=== PATIENT | female | born 1945 | race Caucasian/White ===

== ENCOUNTER 2018-03-07 00:51 | Inpatient (IN) | payer OTHER, MEDICARE ==
[~2018-03-07] VITALS: Ht 160 cm; Wt 81.4 kg
[~2018-03-07 00:51] MED LIST: CYCLOBENZAPRINE10 M1 PO; FLEXERIL PO; GABAPENTIN600 M1 PO; PLAQUENIL200 M1 PO; TYLENOL EXTRA500 M2 PO; ZYRTEC10 M3 PO
--- NOTE | 2018-03-07 10:24 | Operative Report ---
Operative/Inv Procedure Report Surgery Date: 03/07/18 Name of Procedure: Right total knee arthroplasty Pre-Operative Diagnosis: Right knee primary osteoarthritis Post-Operative Diagnosis: Same Estimated Blood Loss: scant Surgeon/Director Marketing Analytics: Harjinder MARTINEZ,Abiel Billy Anesthesia: block Implants: [place] triathlon total knee system-size 4 femur, size 4 tibia, 9 mm cruciate retaining polyethylene, 29 patella Drains: None Specimens: Femoral, tibial, patellar bone and meniscal tissues Microbiology: Urine Tourniquet: 49 minutes Complications: None Condition: Stable Operative Indication: Patient is a 72-year-old woman with gradually worsening right knee symptoms. She was diagnosed with osteoarthritis several years ago but symptoms gradually worsened to the point where it interferes with severely with normal activities of daily living. Conservative measures provided only short-term relief. Patient wished to proceed with total knee arthroplasty after risks benefits and expectations of surgical and nonsurgical options were discussed which included but were not limited to persistent knee pain, need for subsequent surgery, infection, DVT, injury to blood vessel or nerve, anesthesia risks Operative/Procedure Note Note: Patient was brought to the operating room and transferred to the operating table. Once under anesthesia the right lower extremity was prepped and draped in standard fashion. Preoperative IV antibiotics were given prophylactically. The leg was elevated exsanguinated and tourniquet was inflated to 300 millimeters of pressure. Standard anterior incision was made. Medial parapatellar approach was used to enter the knee joint with a minimal extension to the quadricep tendon. End-stage osteoarthritic changes in the medial compartment moderate degenerative changes of the lateral compartment and patellofemoral compartment. Osteophytes were excised. Remnants of the medial lateral meniscus were excised. Remnants of the ACL was excised. Retractors were placed. I used the drill to enter the intramedullary canal for the intramedullary guide for the distal femoral cut. The cutting block was pinned in place for 6 valgus cut. The appropriate thickness was removed. The femur was then sized to a size 4. Size 4 cuts were made while protecting the soft tissues. I was satisfied with the preparation of the femur. I turned my attention to the tibia. The external tibial alignment guide was used. The cutting block was pinned in place for a neutral cut from medial to lateral and reproducing patient's posterior slope based on preoperative templating and intraoperative measurements. The cut was made. The tibia was then sized to a size 4. I did a trial reduction with a size 4 tibia size 4 femur and a 9 mm insert. I was satisfied with the stability medial to lateral and full extension was obtained. No mid flexion instability. Full flexion to gravity. I then measured and remove the appropriate thickness of the patella and replaced it with a 29 mm patella. 3 lug holes were drilled. There appeared to be in need for lateral release but this would be later determined and confirmed after the tourniquet was deflated. I removed all trial components after drilling the lug holes for the femur and marked my rotation of the tibia. The tibial preparation was completed with a tibial punch. All instrument tissue was removed from the knee. Copious irrigation of the knee followed. Cement was mixed on the back table. Once it was ready was applied to the dry clean bony surfaces of the tibia. The size 4 tibia was impacted in place and excess cement was removed with curette. Cement was applied to dry clean bony surfaces of the femur. The size 4 femur was impacted in place and excess cement was removed with curette. A trial polyethylene was inserted and the knee was taken out to full extension. Cement was applied to the dry clean bony surfaces of the patella. Size 29 patella was impacted in place and excess cement was removed with a knife. The cement was hard and it did appear reticular pericapsular injection of a cocktail which include ropivacaine with epinephrine and Toradol for postoperative pain and inflammation management. Once the cement was ready it took the knee through range of motion. I was satisfied with a 9 mm insert. The polyethylene was removed all small pieces of excess cement were removed with osteotome. The tibial tray was copiously irrigated. I made sure there was no remaining soft tissue, bone fragments or cement fragments within the tibial tray. I then impacted the definitive size 9 mm cruciate retaining polyethylene to place. Locking mechanism was confirmed. Again I was satisfied with the stability in full extension with flexion and full flexion to gravity. Tourniquet was deflated at 49 minutes. Hemostasis was obtained. I did reassess the patellar tracking. There was slight lateral patellar tilt. Therefore I proceeded with the lateral release from an extra-articular fashion. The synovium was preserved. I was satisfied with patellar tracking at that point. Hemostasis was obtained. I then closed the retinacular incision with minimal extension to the quadricep with #1 Vicryl in interrupted fashion. Subcu tissue was closed in 2 layers due to the depth of the wound. Skin was closed with a 3-0 Vicryl suture with the knee in flexion. Appropriate dressings were applied and patient was awakened and taken to recovery room in good condition. No intraoperative complications. Blood loss was minimal. Discharge Disposition: PACU
--- NOTE | 2018-03-07 11:04 | Admission Core Measures ---
Acute Coronary Syndrome (CM) ACS Core Measures Acute Coronary Syndrome Diagnosis No Congestive Heart Failure (NEW) CHF Core Measures Congestive Heart Failure Diagnosis No Cerebrovascular Accident (NEW) CVA Core Measures CVA/TIA Diagnosis No Venous Thromboembolism VTE Core Jeannette (View Protocol) VTE Risk Factors Surgery No Mechanical VTE Prophylaxis d/t N/A MechProphylax Ordered No VTE Pharm Prophylaxis d/t NA PharmProphylax ordered Problem List As ranked by this Provider includes Assessment & Plan 1. Unilateral primary osteoarthritis, right knee HOME MEDS Home Med List Acetaminophen (Tylenol Extra Strength) (Unknown Strength) TABLET (Unknown Dose ) PO AD PAIN (Reported) Cetirizine HCl (Zyrtec) 10 MG TABLET 1 TAB PO DAILY ALLERGIES (Reported) Cyclobenzaprine HCl 10 MG TABLET 1 TAB PO QPM PAIN (Reported) Gabapentin 600 MG TABLET 600 MG PO BID PAIN (Reported) Hydroxychlorquine (Plaquenil) 200 MG TABLET 200 MG PO BID PAIN (Reported)
--- NOTE | 2018-03-07 11:06 | Patient Discharge Instructions ---
Discharge Instructions General Discharge Information You were seen/treated for: Right knee unilateral primary osteoarthritis You had these procedures: Right total knee replacement Watch for these problems: Increasing pain despite the use of pain medication Increasing redness, warmth or swelling Drainage of any type from incision Inability to bear weight on operative leg Persistent nausea and vomiting Fever greater than 101.5 degrees Call Surgeon to remove: Cate Do not soak the wound: Yes No bath, but you may shower: Yes Other wound care: Please keep wound clean and dry. No ointments or lotions of any type on or near incision at any time. No exceptions. Your dressing will be changed by your nurse on the second day after your surgery. Daily dry dressing changes are recommended each day thereafter. Do not soak your wound in a bath at any time until otherwise indicated by your surgeon. You may shower, please dry wound immediately after shower with a clean towel. Special Instructions: take pain meds as needed you will need to be on Eliquis for prevention of blood clots for the next 4 weeks. take this 2x per day as directed. Diet Continue normal diet: Yes Recommended Diet: Regular Activity Full Activity/No Limits: No Activity Self Limited: Yes Pounds, do NOT lift more than: 10 Acute Coronary Syndrome Inclusion Criteria At DC or during hospital stay patient has or had the following: ACS DIAGNOSIS No Discharge Core Measures Meds if any: Prescribed or Continued at Discharge Meds if any: NOT Prescribed or Continued at Discharge Congestive Heart Failure Inclusion Criteria At DC or during hospital stay patient has or had the following: CHF DIAGNOSIS No Discharge Core Measures Meds if any: Prescribed or Continued at Discharge Meds if any: NOT Prescribed or Continued at Discharge Cerebrovascular accident Inclusion Criteria At DC or during hospital stay patient has or had the following: CVA/TIA Diagnosis No Discharge Core Measures Meds if any: Prescribed or Continued at Discharge Meds if any: NOT Prescribed or Continued at Discharge Venous thromboembolism Inclusion Criteria VTE Diagnosis No VTE Type NONE VTE Confirmed by (Test) NONE Discharge Core Measures - Per Current guidelines, there needs to be overlap - treatment for the first 5 days of Warfarin therapy. - If discharged on Warfarin prior to 5 days of - overlap therapy, the patient will need to be - assessed for post discharge needs including - *Post discharge parental anticoagulation - *Warfarin and/or parental anticoagulation education - *Follow up date to check INR post discharge At least 5 days overlap therapy as Inpatient No Meds if any: Prescribed or Continued at Discharge Note: Overlap Therapy is Warfarin and Anticoagulant Meds if any: NOT Prescribed or Continued at Discharge
--- NOTE | 2018-03-07 11:08 | Surgical Discharge Summary ---
Visit Information Visit Dates Admission Date: 03/07/18 Discharge Date: 03/09/18 History of Present Illness Chief Complaint: Right knee unilateral primary osteoarthritis right knee Surgical History Pertinent Surgical History: non-contributory Psychosocial History What is Your Primary Language? Latvian Review of Systems: see H&P Hospital Course Course Attending Physician: Harjinder MARTINEZ,Wenceslao Primary Care Physician: Caty MARTINEZ,Brent Ricci Hospital Course: Patient was admitted to the hospital for an elective total joint replacement. The procedure was tolerated well and patient was transferred to a general surgical floor. Diet was advanced and tolerated. The patient was evaluated and treated by physical therapy. At the time of hospital discharge, the vital signs were stable, neurovascular status was intact, and pain was controlled with the use of oral pain medications. Allergies: Coded Allergies: No Known Allergies (03/04/18) Disposition Summary Disposition Principal Diagnosis: Right knee unilateral primary osteoarthritis Additional Diagnosis: None Discharge Disposition: home health services Discharge Instructions General Discharge Information Code Status: Full Code Patient's Diet: Regular, advance as tolerated Patient's Activity: WBAT Follow-Up Instructions/Appts: Follow up with Dr. Grande in 2 weeks from date of surgery Medications at Discharge Discharge Medications: Continue taking these medications: Cetirizine HCl (Zyrtec) 10 MG TABLET 1 Tablet ORAL DAILY Gabapentin (Gabapentin) 600 MG TABLET 600 Milligram ORAL TWICE DAILY Hydroxychlorquine (Plaquenil) 200 MG TABLET 200 Milligram ORAL TWICE DAILY Acetaminophen (Tylenol Extra Strength) (Unknown Strength) TABLET Unknown Dose ORAL As Directed Cyclobenzaprine HCl (Cyclobenzaprine HCl) 10 MG TABLET 1 Tablet ORAL Every night Start taking the following new medications: Apixaban (Eliquis) 2.5 MG TABLET 2.5 Milligram ORAL TWICE DAILY Qty = 60 No Refills Docusate Sodium (Docusate Sodium) 100 MG CAPSULE 100 Milligram ORAL DAILY NEEDED as needed for NO BM FOR 24 HRS Qty = 10 No Refills Sennosides/Docusate Sodium (Senna Plus Tablet) 8.6 MG-50 MG TABLET 2 Tablet ORAL AT BEDTIME NEEDED as needed for NO BM IN TWO DAYS Qty = 10 No Refills Oxycodone HCl/Acetaminophen (Percocet 5-325 MG Tablet) 5 MG-325 MG TABLET 1-2 Tablet ORAL EVERY 4 HOURS NEEDED as needed for PAIN Qty = 36 No Refills
[2018-03-07 11:55] VITALS: BP 122/78
[2018-03-07 14:00] VITALS: BP 110/64
--- NOTE | 2018-03-07 14:34 | PN- Orthopedic ---
Subjective Subjective: poc s/p right tka comfortable denies cp, sob, no n+v Objective Vital Signs and I&Os Vital Signs Date Time Temp Pulse Resp B/P B/P Pulse O2 O2 Flow FiO2 Mean Ox Delivery Rate 03/07 1155 97.9 76 22 122/78 93 Room Air Intake & Output 03/07 1600 03/07 0800 03/07 0000 03/06 1600 03/06 0800 03/06 0000 Intake Total Output Total Balance Patient 180 lb Weight Weight Bed scale Measurement Method Physical Exam: cv; rrr lungs: clear abd: soft, +bs ext: drsg dry distal cms intact bilat Assessment/Plan Assessment/Plan ortho stable plan oob with pt eliquis for dvt prophylaxis home d/c planning in am cont all home meds adance diet Core Measures Venous Thromboembolism VTE Risk Factors Surgery No Mechanical VTE Prophylaxis d/t N/A MechProphylax Ordered No VTE Pharm Prophylaxis d/t NA PharmProphylax ordered
[2018-03-07 16:10] VITALS: BP 122/68
[2018-03-07 18:15] VITALS: BP 100/58
[2018-03-07 22:39] VITALS: BP 120/78
[2018-03-08 02:00] VITALS: BP 140/68
[2018-03-08 07:18] VITALS: BP 110/58
[2018-03-08 07:53] LABS: ABSOLUTE BASOPHIL COUNT 0 /CUMM (0.0-0.2); ABSOLUTE EOSINOPHIL COUNT 0 /CUMM (0.0-0.7); ABSOLUTE GRANULOCYTE CT 5.8 /CUMM (1.4-6.5); ABSOLUTE LYMPH COUNT 1.3 /CUMM (1.2-3.4); ABSOLUTE MONOCYTE COUNT 0.7 /CUMM (0.10-0.60); BASOPHIL % 0.2 % (0.0-2.0); EOSINOPHIL % 0.5 % (0-5); GRANULOCYTE % 73.6 % (42.2-75.2); HEMATOCRIT 34.2 % (37-47); MEAN CORPUSCULAR HGB 28.2 PG (27.0-31.0); MEAN CORPUSCULAR HGB CONC 33.4 G/DL (33.0-37.0); MEAN CORPUSCULAR VOLUME 84.5 FL (81.0-99.0); PLATELET COUNT 135 /CUMM (130-400); RBC DISTRIBUTION WIDTH 15.2 % (11.5-14.5); RED BLOOD CELL CT 4.05 /CUMM (4.20-5.40); WHITE BLOOD CELL COUNT 7.9 /CUMM (4.8-10.8)
--- NOTE | 2018-03-08 08:07 | PN- Orthopedic ---
See Addendum Subjective Subjective: Patient with complaints of moderate pain of the right knee, medication is helping. No acute events overnight. She would like the Corbett catheter removed Objective Vital Signs and I&Os Vital Signs Date Time Temp Pulse Resp B/P B/P Pulse O2 O2 Flow FiO2 Mean Ox Delivery Rate 03/08 0718 98.8 70 20 110/58 96 Room Air / 0200 97.6 63 20 140/68 94 Room Air / 2239 98.2 70 20 120/78 94 Room Air / 1815 97.6 71 20 100/58 93 Room Air / 1610 98.1 59 20 122/68 94 Room Air / 1400 98.1 64 20 110/64 93 Room Air / 1155 97.9 76 22 122/78 93 Room Air Intake & Output 03/08 1600 03/08 0800 06/05 0000 /04 1600 / 0800 06/04 0000 Intake Total 840 1080 465 Output Total 250 175 Balance 840 830 290 Intake, IV 600 600 225 Intake, Oral 240 480 240 Number 0 Bowel Movements Output, Urine 250 175 Patient 180 lb Weight Weight Bed scale Measurement Method Physical Exam: Well-developed well-nourished no apparent distress. HEENT: Atraumatic, extraocular motion intact Neck: Supple, no lymphadenopathy Respiratory: No respiratory distress Extremities: No edema RIGHT lower extremity dressing in place, clean dry and intact, no active bleeding Range of motion 0-[address] in place Neurovascularly intact distally Bilateral calves are supple, nontender. Neuro: Alert and oriented x3 Psych: Mood affect normal, normal memory normal judgment. Skin: Warm and dry, no rash on exposed skin Results Last 48 Hours of Labs: Laboratory Tests 03/08 07 Chemistry Sodium Pending Potassium Pending Chloride Pending Carbon Dioxide Pending Anion Gap Pending BUN Pending Creatinine Pending BUN/Creatinine Ratio Pending Hematology CBC w Diff Pending WBC Pending RBC Pending Hgb Pending Hct Pending MCV Pending MCH Pending MCHC Pending RDW Pending Plt Count Pending MPV Pending Assessment/Plan Assessment/Plan Postop day #1 status post right total knee arthroplasty Perioperative antibiotics. Pain medication as needed. Out of bed Physical therapy, weightbearing as tolerated DC IV fluids DC Corbett catheter Regular diet Follow a.m. labs Eliquis for DVT prophylaxis ALPS for DVT prophylaxis Regular home meds Dressing change postop day 2 Patient would like to be discharged to a [facility]dc facility, likely disposition in 1-2 days Core Measures Venous Thromboembolism VTE Risk Factors Surgery No Mechanical VTE Prophylaxis d/t N/A MechProphylax Ordered No VTE Pharm Prophylaxis d/t NA PharmProphylax ordered
[2018-03-08 10:30] VITALS: BP 112/62
[2018-03-08 14:29] VITALS: BP 104/60
[2018-03-08 20:29] VITALS: BP 122/64
[2018-03-09] VITALS: BP 124/72
[2018-03-09 08:00] VITALS: BP 126/70
--- NOTE | 2018-03-09 08:10 | PN- Orthopedic ---
Subjective Subjective: No acute overnight events reported. Pain controlled presently. Pt ambulatory. Denies chest pain, shortness of breath and difficulty breathing. Denies nausea and vomitting. Objective Vital Signs and I&Os Vital Signs Date Time Temp Pulse Resp B/P B/P Pulse O2 O2 Flow FiO2 Mean Ox Delivery Rate 03/09 0000 98.6 65 124/72 95 Room Air 03/08 2029 97.9 68 18 122/64 96 Room Air 03/08 1429 98.4 64 18 104/60 94 /05 1030 98.2 60 20 112/62 96 Room Air Intake & Output 03/09 1600 03/09 0800 03/09 0000 03/08 1600 03/08 0800 03/08 0000 Intake Total 120 720 202 010 8591 Output Total 850 250 Balance 120 720 125 840 830 Intake, IV 75 600 600 Intake, Oral 120 720 900 240 480 Number 0 0 Bowel Movements Output, Urine 850 250 Physical Exam: General: Alert and oriented x3, no acute distress Cardiac: RRR, s1s2 Pulm: CTA bilaterally. Non-labored respiratory effort Abd: Soft, non-tender, non-distended Extremities: Moves all extremities, distal sensation intact. Skin warm and well perfused. DP pulses palpable bilaterally. Bilateral calves soft and non- tender. Surgical site: R knee, dressing dry and intact. Steri strips in place. No drainage. No erythema. Full extension, flexion to 90 degrees. Clean dry dressing applied. Assessment/Plan Assessment/Plan This is a 72 year old female, POD 2 s/p R tkr -Decision re: dispo planning to be made today, home vs str -Continue diet as tolerated -Continue eliquis 2.5 bid as dvt ppx -OOB, wbat Will discuss plan of care with Dr. Grande Core Measures Venous Thromboembolism VTE Risk Factors Surgery No Mechanical VTE Prophylaxis d/t N/A MechProphylax Ordered No VTE Pharm Prophylaxis d/t NA PharmProphylax ordered
--- NOTE | 2018-03-09 12:04 | RADIOLOGY REPORT ---
EXAMINATION: XR KNEE, RIGHT CLINICAL INFORMATION: Status post right total knee arthroplasty. COMPARISON: None TECHNIQUE: Two views of the right knee. FINDINGS: Status post total right knee arthroplasty. Mild narrowing of the joint space in both the medial and lateral compartments may be positional. No periprosthetic lucency or fracture. Postoperative changes of patellar resurfacing. Small joint effusion. Soft tissues are otherwise unremarkable. IMPRESSION: Status post total knee arthroplasty. Mild narrowing of the joint space in both the medial lateral compartments may be positional. Hardware is otherwise unremarkable. Small joint effusion. John Ngo M.D. Fellow, Musculoskeletal Radiology I personally reviewed the images and, if necessary, I edited the report. I agree with the report as now presented.
[2018-03-09] MEDS ORDERED: DOCUSATE SODIU100 M3 PO (13:24)
[2018-03-09] MEDS ORDERED: ELIQUIS2.5 M1 PO (13:24)
[2018-03-09] MEDS ORDERED: SENNA PLUS TAB1 EACH PO (13:24)
[2018-03-09] MEDS ORDERED: PERCOCET 5-3251 EACH PO (13:25)
== END 2018-03-09 14:18 | disposition home health service (06) | DRG 470 ==
LOC: SDA 00:51 → ENRESERV 10:45 → ENTRNSPT 11:30 → EDTRNSPTSTS 11:46 → EDTRNSPT 11:46 → CMPTRNSPT 12:03 → 2NB 12:03 → ENPENDDIS 03-09 13:32 → ENTRNSPT 03-09 14:03 → EDTRNSPT 03-09 14:11 → EDTRNSPTSTS 03-09 14:11 → 2NB 03-09 14:18 → CMPTRNSPT 03-09 14:34
PROVIDERS: Physician Assistant Surgical
PROC: 0SRC0J9 Replacement of Right Knee Joint with Synthetic Substitute, Cemented, Open Approach (ICD-10-PCS; principal; 2018-03-07)
PROC: 3E0T3BZ Introduction of Anesthetic Agent into Peripheral Nerves and Plexi, Percutaneous Approach (ICD-10-PCS; principal; 2018-03-07)
DX: M17.11 Unilateral primary osteoarthritis, right knee (principal); F17.210 Nicotine dependence, cigarettes, uncomplicated; Z96.642 Presence of left artificial hip joint; Z98.1 Arthrodesis status
CPT/HCPCS: 2NBP; 36592; 73560-RT; 82436; 87086; 97110-GO; 97112-GO; 97116-GO; 97161-GP; 97530-GO; C1713; C9290; J0171; J0690; J1100; J1885; J2405; J2795; J3370; J7040